=== PATIENT | male | born 1980 | race Caucasian/White ===

== ENCOUNTER 2021-01-04 07:56 | Day surgery (SDC) | payer OTHER ==
[2021-01-04] MEDS ORDERED: Depo-Medrol 40 MG/ML IM ONE (07:57)
[2021-01-04] MEDS ORDERED: DIPRIVAN 200 MG/20 ML IV ONE (09:19)
--- NOTE | 2021-01-04 10:45 | XRAY ---
Indication: Bilateral L4-S1 MBB. Intraoperative fluoroscopy provided for 11 seconds. Single digital spot image submitted for interpretation demonstrates posterior needle tips projecting over the expected left and right L4-S1 nerve roots. Correlate with intraoperative findings/report.
--- NOTE | 2021-01-04 11:00 | XRAY ---
11 seconds fluoroscopy time in surgery for bilateral L4-S1 MBB.
[2021-01-04] MEDS ORDERED: Lactated Ringers 1,000 ML IV ONE (15:26)
== END 2021-01-04 09:33 | disposition home or self-care (01) ==
LOC: SDC-PAIN 07:56
PROVIDERS: ATTEND Psychiatry & Neurology Pain Medicine
DX: M47.816 Spondylosis without myelopathy or radiculopathy, lumbar region (principal); E11.9 Type 2 diabetes mellitus without complications; Z79.899 Other long term (current) drug therapy
CPT/HCPCS: 64493; 64494; 72020; 77002; 82947; J1030; J2704

== ENCOUNTER 2021-02-15 07:11 | Day surgery (SDC) | payer OTHER ==
[2021-02-15] MEDS ORDERED: BUPIVACAINE 0.5% VIAL IJ ONE (07:12)
[2021-02-15] MEDS ORDERED: DIPRIVAN 200 MG/20 ML IV ONE (08:53)
--- NOTE | 2021-02-15 10:23 | XRAY ---
Indication: Bilateral L4-S1 MBB. Intraoperative fluoroscopy provided for 16 seconds. Single digital spot image submitted for interpretation demonstrates posterior needle tips projecting over the expected left and right L4-S1 nerve roots. Correlate with intraoperative findings/report.
--- NOTE | 2021-02-15 10:37 | XRAY ---
16 seconds fluoroscopy time in surgery for bilateral L4-S1 MBB.
[2021-02-15] MEDS ORDERED: Lactated Ringers 1,000 ML IV ONE (15:28)
== END 2021-02-15 09:20 | disposition home or self-care (01) ==
LOC: SDC-PAIN 07:11
PROVIDERS: ATTEND Psychiatry & Neurology Pain Medicine
DX: M47.816 Spondylosis without myelopathy or radiculopathy, lumbar region (principal); E11.9 Type 2 diabetes mellitus without complications; Z79.899 Other long term (current) drug therapy
CPT/HCPCS: 64493; 64494; 72020; 77002; 82947; J2704

== ENCOUNTER 2021-03-29 09:12 | Day surgery (SDC) | payer OTHER ==
[2021-03-29] MEDS ORDERED: Depo-Medrol 40 MG/ML IM ONE (09:13)
[2021-03-29] MEDS ORDERED: BUPIVACAINE 0.5% VIAL IJ ONE (09:13)
[2021-03-29] MEDS ORDERED: Xylocaine 1% Vial 30 ML PF IJ ONE (09:13)
[2021-03-29] MEDS ORDERED: DIPRIVAN 200 MG/20 ML IV ONE (10:52)
--- NOTE | 2021-03-29 12:39 | XRAY ---
Indication: Left L4-S1 RFA. Intraoperative fluoroscopy provided for 37 seconds. 3 digital spot images submitted for interpretation demonstrates posterior needle tips projecting over the expected left L4-S1 nerve roots. Correlate with intraoperative findings/report.
--- NOTE | 2021-03-29 14:51 | XRAY ---
37 seconds fluoroscopy time in surgery for left L4-S1 RFA.
[2021-03-29] MEDS ORDERED: Lactated Ringers 1,000 ML IV ONE (16:34)
== END 2021-03-29 11:28 | disposition home or self-care (01) ==
LOC: SDC-PAIN 09:12
PROVIDERS: ATTEND Psychiatry & Neurology Pain Medicine
DX: M47.816 Spondylosis without myelopathy or radiculopathy, lumbar region (principal); E11.9 Type 2 diabetes mellitus without complications; Z79.899 Other long term (current) drug therapy
CPT/HCPCS: 64635; 64636; 72100; 77002; 82947; J1030; J2001; J2704

== ENCOUNTER 2021-04-19 06:50 | Day surgery (SDC) | payer OTHER ==
[2021-04-19] MEDS ORDERED: Xylocaine 1% Vial 30 ML PF IJ ONE (06:51)
[2021-04-19] MEDS ORDERED: BUPIVACAINE 0.5% VIAL IJ ONE (06:51)
[2021-04-19] MEDS ORDERED: Depo-Medrol 40 MG/ML IM ONE (06:51)
[2021-04-19] MEDS ORDERED: DIPRIVAN 200 MG/20 ML IV ONE (08:05)
[2021-04-19] MEDS ORDERED: Ketamine HCl 50 MG/ML ONE (08:05)
--- NOTE | 2021-04-19 09:28 | XRAY ---
Indication: Right L4-S1 RFA. Intraoperative fluoroscopy provided for 37 seconds. 3 digital spot images submitted for interpretation demonstrates posterior needle tips projecting over the expected right L4-S1 nerve roots. Correlate with intraoperative findings/report.
[2021-04-19] MEDS ORDERED: Lactated Ringers 1,000 ML IV ONE (10:00)
== END 2021-04-19 09:05 | disposition home or self-care (01) ==
LOC: SDC-PAIN 06:50
PROVIDERS: ATTEND Psychiatry & Neurology Pain Medicine
DX: M47.816 Spondylosis without myelopathy or radiculopathy, lumbar region (principal); E11.9 Type 2 diabetes mellitus without complications; Z79.899 Other long term (current) drug therapy
CPT/HCPCS: 64635; 64636; 72100; 82947; J1030; J2001; J2704